=== PATIENT | male | born 1945 ===

== ENCOUNTER 2021-01-30 16:14 | Outpatient (CLI) | payer MEDICARE, BC ==
[2021-01-30 16:32] LABS: BASOPHILS % (AUTO) 0.3 %; EOSINOPHILS % (AUTO) 0.8 %; HGB - HEMOGLOBIN 12.3 g/dL (14.0-18.0); LYMPHOCYTES # (AUTO) 1.2 10^3/uL (1.5-3.5); LYMPHOCYTES % (AUTO) 31.1 %; MEAN CORPUSCULAR HEMOGLOBIN 33.2 pg (27.0-31.0); MEAN CORPUSCULAR HGB CONC 34.2 g/dL (32.0-36.0); MONOCYTES # (AUTO) 0.4 10^3/uL (0.0-1.0); NEUTROPHILS # (AUTO) 2.3 10^3/uL (1.5-6.6); NEUTROPHILS % (AUTO) 57.8 %; PLT - PLATELET COUNT 142 10^3/uL (130-450); RED BLOOD COUNT 3.71 10^6/uL (4.70-6.10); RED CELL DISTRIBUTION WIDTH 13.6 % (12.0-15.0); WHITE BLOOD COUNT 3.9 x10^3/uL (4.8-10.8)
== END 2021-01-30 16:15 | disposition home or self-care (01) ==
LOC: LAB 16:14
PROVIDERS: ATTEND Dermatology
DX: Z79.899 Other long term (current) drug therapy (principal)
CPT/HCPCS: 36415; 85025

== ENCOUNTER 2021-03-26 11:41 | Outpatient (CLI) | payer MEDICARE, BC ==
[2021-03-26 12:42] LABS: BASOPHILS % (AUTO) 0.5 %; EOSINOPHILS # (AUTO) 0.1 10^3/uL (0.0-0.7); EOSINOPHILS % (AUTO) 2.7 %; HCT - HEMATOCRIT 35.1 % (42.0-52.0); HGB - HEMOGLOBIN 12.1 g/dL (14.0-18.0); LYMPHOCYTES % (AUTO) 23.6 %; MEAN CORPUSCULAR HEMOGLOBIN 33.4 pg (27.0-31.0); MEAN CORPUSCULAR HGB CONC 34.5 g/dL (32.0-36.0); MEAN PLATELET VOLUME 8.2 fL (7.4-11.4); MONOCYTES # (AUTO) 0.4 10^3/uL (0.0-1.0); MONOCYTES % (AUTO) 9.1 %; NEUTROPHILS # (AUTO) 2.8 10^3/uL (1.5-6.6); NEUTROPHILS % (AUTO) 63.9 %; PLT - PLATELET COUNT 155 10^3/uL (130-450); RED BLOOD COUNT 3.62 10^6/uL (4.70-6.10); RED CELL DISTRIBUTION WIDTH 12.7 % (12.0-15.0); WHITE BLOOD COUNT 4.4 x10^3/uL (4.8-10.8)
[2021-03-26 12:53] LABS: ALBUMIN 4.1 g/dL (3.2-5.5); ALBUMIN/GLOBULIN RATIO 1.2 (1.0-2.2); BILIRUBIN,TOTAL 0.5 mg/dL (0.2-1.0); POTASSIUM 3.8 mmol/L (3.5-5.0); TOTAL PROTEIN 7.5 g/dL (6.7-8.2)
== END 2021-03-26 11:42 | disposition home or self-care (01) ==
LOC: LAB 11:41
PROVIDERS: ATTEND Dermatology
DX: Z79.899 Other long term (current) drug therapy (principal)
CPT/HCPCS: 36415; 80053; 85025

== ENCOUNTER 2021-04-08 16:02 | Outpatient (CLI) | payer MEDICARE, BC ==
--- NOTE | 2021-04-08 17:04 | XRAY Report ---
PROCEDURE: Hip w/Pelvis 2-3V LT INDICATIONS: PAIN IN LEFT HIP TECHNIQUE: AP pelvis with lateral view(s) of the bilateral hip(s). COMPARISON: None. FINDINGS: Bones: No fractures or dislocations. Pelvic ring appears intact. No suspicious bony lesions. Left hip arthroplasty is present with acetabular and femoral head prosthesis in expected position. No per iprosthetic fracture seen. There is [id number]-[id number] narrowing of the right hip joint. Degenerative d isc and facet disease involves the lower lumbar spine. Soft tissues: The visualized bowel gas pattern is normal. No suspicious soft tissue calcifications. IMPRESSION: Expected appearance and alignment of left hip arthroplasty. Mild/moderate right hip joint degeneration. Reviewed by: [place] Brown on 04/08/2021 5:03 PM PDT Approved by: Xavier Lazo MD on 04/08/2021 5:03 PM PDT Station ID: [id number]
== END 2021-04-08 16:03 | disposition home or self-care (01) ==
LOC: DI 16:02
PROVIDERS: ATTEND Family Medicine
DX: M25.552 Pain in left hip (principal); Z96.642 Presence of left artificial hip joint; M16.11 Unilateral primary osteoarthritis, right hip

== ENCOUNTER 2021-05-05 16:52 | Outpatient (CLI) | payer MEDICARE, BC ==
--- NOTE | 2021-05-07 06:07 | XRAY Report ---
PROCEDURE: Foot 3 View RT INDICATIONS: PAIN 1ST-2ND MP JOINTS R + OLD INJ L JONO TECHNIQUE: 3 views of the foot were acquired. COMPARISON: None. FINDINGS: Bones: No acute fractures or dislocations. No suspicious bony lesions. Severe degenerative changes are seen at the first metatarsophalangeal joint with complete joint space narrowing and subchondral sclerosis and formation of small marginal osteophytes. A tiny plantar calcaneal spur is present. Ther e is minimal dorsal spurring at the talonavicular joint. Soft tissues: No suspicious soft tissue calcification. IMPRESSION: No acute osseous abnormality. 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 Reviewed by: Deepak Hernández MD on 05/06/2021 9:49 AM PDT Approved by: Deepak Hernández MD on 05/06/2021 9:49 AM PDT Station ID: [id number]
--- NOTE | 2021-05-07 06:07 | XRAY Report ---
PROCEDURE: Tib/Fib LT INDICATIONS: PAIN 1ST-2ND MP JOINTS R + OLD INJ L JONO TECHNIQUE: 2 views of the tibia and fibula were acquired. COMPARISON: None. FINDINGS: Bones: No acute fractures or dislocations. No suspicious bony lesions. Small posterior and plantar calcaneal enthesophytes. Soft tissues: A calcification is partially imaged medial to the medial femoral condyle that may repre sent a Henry-Stieda lesion. The Achilles tendon stripe is mildly thickened, compatible with the reported history of a prior injury. IMPRESSION: 1. Thickening of the Achilles tendon shadow is consistent with a remote prior injury or tendinosis. A small insertional enthesophyte is present. 2. No acute osseous abnormality. 3. Small calcification is partially imaged adjacent to the medial femoral condyle, possibly represen ting a Henry-Stieda lesion or less likely an intra-articular loose body. Reviewed by: Deepak Hernández MD on 05/06/2021 10:02 AM PDT Approved by: Deepak Hernández MD on 05/06/2021 10:02 AM PDT Station ID: [id number]
== END 2021-05-05 16:53 | disposition home or self-care (01) ==
LOC: LAB 16:52
PROVIDERS: ATTEND Podiatrist
DX: M67.88 Other specified disorders of synovium and tendon, other site (principal); M77.32 Calcaneal spur, left foot; R93.6 Abnormal findings on diagnostic imaging of limbs; M19.071 Primary osteoarthritis, right ankle and foot

== ENCOUNTER 2021-07-03 11:30 | Outpatient (CLI) | payer MEDICARE, BC ==
[2021-07-03 11:50] LABS: BASOPHILS % (AUTO) 0.3 %; EOSINOPHILS # (AUTO) 0.1 10^3/uL (0.0-0.7); EOSINOPHILS % (AUTO) 2.6 %; HGB - HEMOGLOBIN 12.3 g/dL (14.0-18.0); LYMPHOCYTES % (AUTO) 32.9 %; MEAN CORPUSCULAR HEMOGLOBIN 32.5 pg (27.0-31.0); MEAN CORPUSCULAR HGB CONC 34.2 g/dL (32.0-36.0); MEAN PLATELET VOLUME 8.4 fL (7.4-11.4); MONOCYTES # (AUTO) 0.5 10^3/uL (0.0-1.0); MONOCYTES % (AUTO) 14.8 %; NEUTROPHILS # (AUTO) 1.5 10^3/uL (1.5-6.6); NEUTROPHILS % (AUTO) 49.4 %; PLT - PLATELET COUNT 157 10^3/uL (130-450); RED BLOOD COUNT 3.79 10^6/uL (4.70-6.10); RED CELL DISTRIBUTION WIDTH 12.2 % (12.0-15.0)
[2021-07-03 12:04] LABS: ALBUMIN 4.3 g/dL (3.2-5.5); BILIRUBIN,TOTAL 0.9 mg/dL (0.2-1.0); CALCIUM 8.8 mg/dL (8.5-10.3); CREATININE 1.1 mg/dL (0.6-1.2); POTASSIUM 3.7 mmol/L (3.5-5.0); TOTAL PROTEIN 8.7 g/dL (6.7-8.2)
== END 2021-07-03 11:31 | disposition home or self-care (01) ==
LOC: LAB 11:30
PROVIDERS: ATTEND Dermatology
DX: Z79.899 Other long term (current) drug therapy (principal)
CPT/HCPCS: 36415; 80053; 85025

== ENCOUNTER 2021-09-15 10:20 | Outpatient (CLI) | payer MEDICARE, BC ==
[2021-09-15 10:43] LABS: BASOPHILS % (AUTO) 0.2 %; EOSINOPHILS # (AUTO) 0.2 10^3/uL (0.0-0.7); EOSINOPHILS % (AUTO) 3.4 %; HCT - HEMATOCRIT 37.1 % (42.0-52.0); LYMPHOCYTES # (AUTO) 1.5 10^3/uL (1.5-3.5); LYMPHOCYTES % (AUTO) 33.4 %; MEAN CORPUSCULAR HEMOGLOBIN 32.4 pg (27.0-31.0); MEAN CORPUSCULAR VOLUME 92.5 fL (80.0-94.0); MEAN PLATELET VOLUME 8.5 fL (7.4-11.4); MONOCYTES # (AUTO) 0.5 10^3/uL (0.0-1.0); MONOCYTES % (AUTO) 11.6 %; NEUTROPHILS # (AUTO) 2.3 10^3/uL (1.5-6.6); NEUTROPHILS % (AUTO) 51.2 %; PLT - PLATELET COUNT 152 10^3/uL (130-450); RED BLOOD COUNT 4.01 10^6/uL (4.70-6.10); RED CELL DISTRIBUTION WIDTH 12.1 % (12.0-15.0); WHITE BLOOD COUNT 4.4 x10^3/uL (4.8-10.8)
== END 2021-09-15 10:21 | disposition home or self-care (01) ==
LOC: LAB 10:20
PROVIDERS: ATTEND Dermatology
DX: Z79.899 Other long term (current) drug therapy (principal)
CPT/HCPCS: 36415; 85025

== ENCOUNTER 2021-10-08 15:09 | Outpatient (CLI) | payer MEDICARE, BC ==
[2021-10-08 15:31] LABS: BASOPHILS % (AUTO) 0.3 %; EOSINOPHILS # (AUTO) 0.2 10^3/uL (0.0-0.7); EOSINOPHILS % (AUTO) 2.6 %; HCT - HEMATOCRIT 36.6 % (42.0-52.0); HGB - HEMOGLOBIN 12.8 g/dL (14.0-18.0); LYMPHOCYTES % (AUTO) 31.8 %; MEAN CORPUSCULAR HEMOGLOBIN 32.7 pg (27.0-31.0); MEAN CORPUSCULAR VOLUME 93.4 fL (80.0-94.0); MEAN PLATELET VOLUME 8.5 fL (7.4-11.4); MONOCYTES # (AUTO) 0.5 10^3/uL (0.0-1.0); MONOCYTES % (AUTO) 8.2 %; NEUTROPHILS # (AUTO) 3.5 10^3/uL (1.5-6.6); NEUTROPHILS % (AUTO) 56.6 %; PLT - PLATELET COUNT 180 10^3/uL (130-450); RED BLOOD COUNT 3.92 10^6/uL (4.70-6.10); RED CELL DISTRIBUTION WIDTH 12.5 % (12.0-15.0); WHITE BLOOD COUNT 6.1 x10^3/uL (4.8-10.8)
[2021-10-08 15:39] LABS: ALBUMIN 4.5 g/dL (3.2-5.5); ALBUMIN/GLOBULIN RATIO 1.4 (1.0-2.2); BILIRUBIN,TOTAL 0.7 mg/dL (0.2-1.0); CALCIUM 9.2 mg/dL (8.5-10.3); CREATININE 1.1 mg/dL (0.6-1.2); POTASSIUM 3.5 mmol/L (3.5-5.0); TOTAL PROTEIN 7.7 g/dL (6.7-8.2)
== END 2021-10-08 15:10 | disposition home or self-care (01) ==
LOC: LAB 15:09
PROVIDERS: ATTEND Dermatology
DX: Z79.899 Other long term (current) drug therapy (principal)
CPT/HCPCS: 36415; 80053; 85025

== ENCOUNTER 2021-12-18 11:28 | Outpatient (CLI) | payer MEDICARE, BC ==
[2021-12-18 11:51] LABS: BASOPHILS % (AUTO) 0.7 %; EOSINOPHILS # (AUTO) 0.1 10^3/uL (0.0-0.7); EOSINOPHILS % (AUTO) 2.6 %; HCT - HEMATOCRIT 36.4 % (42.0-52.0); HGB - HEMOGLOBIN 12.5 g/dL (14.0-18.0); LYMPHOCYTES % (AUTO) 33.1 %; MEAN CORPUSCULAR HEMOGLOBIN 32.7 pg (27.0-31.0); MEAN CORPUSCULAR HGB CONC 34.3 g/dL (32.0-36.0); MEAN CORPUSCULAR VOLUME 95.3 fL (80.0-94.0); MEAN PLATELET VOLUME 8.3 fL (7.4-11.4); MONOCYTES # (AUTO) 0.6 10^3/uL (0.0-1.0); MONOCYTES % (AUTO) 19.5 %; NEUTROPHILS # (AUTO) 1.3 10^3/uL (1.5-6.6); NEUTROPHILS % (AUTO) 44.1 %; PLT - PLATELET COUNT 140 10^3/uL (130-450); RED BLOOD COUNT 3.82 10^6/uL (4.70-6.10); RED CELL DISTRIBUTION WIDTH 13.5 % (12.0-15.0)
[2021-12-18 12:03] LABS: ALBUMIN 3.9 g/dL (3.2-5.5); ALBUMIN/GLOBULIN RATIO 0.6 (1.0-2.2); BILIRUBIN,TOTAL 0.7 mg/dL (0.2-1.0); CREATININE 1.1 mg/dL (0.6-1.2); POTASSIUM 3.7 mmol/L (3.5-5.0); TOTAL PROTEIN 10.2 g/dL (6.7-8.2)
== END 2021-12-18 11:29 | disposition home or self-care (01) ==
LOC: LAB 11:28
PROVIDERS: ATTEND Podiatrist
DX: B35.1 Tinea unguium (principal); Z79.899 Other long term (current) drug therapy
CPT/HCPCS: 36415; 80053; 82248; 85025

== ENCOUNTER 2022-01-06 11:24 | Emergency (ER) | payer MEDICARE, BC ==
[2022-01-06 11:39] VITALS: BP 132/77
--- NOTE | 2022-01-06 12:55 | ED Physician Documentation ---
PD HPI LOWER EXT INJURY - Stated complaint Stated Complaint: LEG PX/BULDGE - Chief complaint Chief Complaint: Ext Problem - History obtained from History obtained from: Patient - History of Present Illness PD HPI LOW EXT INJURY LOCATION: Left (Painful spot to the left medial knee for the last 3 days ago. He thinks he might of banged it on something but is specifically worried about DVT.) Review of Systems Constitutional: reports: Reviewed and negative Eyes: reports: Reviewed and negative Ears: reports: Reviewed and negative Nose: reports: Reviewed and negative Throat: reports: Reviewed and negative Cardiac: reports: Reviewed and negative PD PAST MEDICAL HISTORY - Present Medications Home Medications: Ambulatory Orders Medication Instructions Recorded Confirmed Alfuzosin HCl [Alfuzosin HCl ER] 10 mg PO DAILY 10/14/21 10/14/21 Calcium Carbonate [Calcium] 500 mg PO DAILY 10/14/21 10/14/21 Cholecalciferol (Vitamin D3) 100 mcg PO DAILY 10/14/21 10/14/21 [Vitamin D3] Desvenlafaxine Succinate [Pristiq 25 mg PO DAILY 10/14/21 10/14/21 ER] Lysine [l-Lysine] 1,000 mg PO DAILY 10/14/21 10/14/21 Montelukast Sodium 10 mg PO DAILY 10/14/21 10/14/21 Niacinamide 200 mg PO DAILY 10/14/21 10/14/21 Quetiapine Fumarate [Seroquel] 50 mg PO HS 10/14/21 10/14/21 Valacyclovir HCl [Valtrex] 500 mg PO PRN PRN 10/14/21 10/14/21 Vitamin B Complex 1 each PO DAILY 10/14/21 10/14/21 - Allergies Allergies/Adverse Reactions: Allergies Allergy/AdvReac Type Severity Reaction Status Date / Time No Known Drug Allergies Allergy Verified 01/06/22 11:38 PD ED PE NORMAL - Vitals Vital signs reviewed: Yes - General General: Alert and oriented X 3, No acute distress - Extremities Extremities: Other (There is a small tender area to the left medial knee with a suggestion of a subcutaneous fluid collection and mild surrounding bruising with full range of motion and no bony tenderness.) - Neuro Neuro: Alert and oriented X 3, Normal speech Results - Vitals Vitals: Vital Signs - 24 hr 01/06/22 11:38 Temperature 36.4 C L Heart Rate 65 Respiratory 18 Rate Blood Pressure 132/77 H O2 Saturation 100 Oxygen O2 Source Room air - Rads (name of study) DVT ultrasound without DVT but 1.6 cm hematoma in the symptomatic area. Radiology: EMP read contemporaneously Departure - Departure Disposition: 01 Home, Self Care Clinical Impression: Subcutaneous hematoma Condition: Good Record reviewed to determine appropriate education?: Yes Instructions: ED Hematoma Comments: Tylenol for pain, if it is particularly bad you can add ibuprofen or Aleve. Return for new or worsening symptoms. Should go away on its own. Follow-up with your doctor in a week if not better. Discharge Date/Time: 01/06/22 13:00
--- NOTE | 2022-01-06 13:06 | Ultrasound Report ---
PROCEDURE: Duplex Ext Veins Left INDICATIONS: leg pain and swelling TECHNIQUE: Real-time imaging, as well as color and pulse Doppler interrogation, were performed of the lower extr emity deep veins from the inguinal ligament to the popliteal fossa. COMPARISON: None. FINDINGS: The deep veins are normally compressible, and free of intraluminal thrombus. Color and pu lse Doppler demonstrate normal phasic intraluminal flow. There is normal augmentation response to di stal compression maneuver. There is an anteromedial left knee fluid collection in the subcutaneous soft tissues measuring 1.6 x 0.4 x 1.1 cm which is suspected to represent a small hematoma. IMPRESSION: Negative for deep venous thrombosis of the left lower extremity Probable 1.6 cm hematoma noted in the subcutaneous soft tissues of the anteromedial left knee. Reviewed by: Raza Houston MD on 01/06/2022 1:05 PM PDT Approved by: Raza Houston MD on 01/06/2022 1:05 PM PDT Station ID: [id number]
== END 2022-01-06 13:00 | disposition home or self-care (01) ==
LOC: ED 11:24
DX: S80.02XA Contusion of left knee, initial encounter (principal); X58.XXXA Exposure to other specified factors, initial encounter
CPT/HCPCS: 99282; 99284

== ENCOUNTER 2022-04-27 14:46 | Outpatient (CLI) | payer MEDICARE, BC ==
[2022-04-27 15:05] LABS: BASOPHILS % (AUTO) 0.3 %; EOSINOPHILS # (AUTO) 0.2 10^3/uL (0.0-0.7); EOSINOPHILS % (AUTO) 4.7 %; HCT - HEMATOCRIT 36.9 % (42.0-52.0); HGB - HEMOGLOBIN 12.8 g/dL (14.0-18.0); LYMPHOCYTES # (AUTO) 1.4 10^3/uL (1.5-3.5); LYMPHOCYTES % (AUTO) 43.8 %; MEAN CORPUSCULAR HEMOGLOBIN 32.6 pg (27.0-31.0); MEAN CORPUSCULAR HGB CONC 34.7 g/dL (32.0-36.0); MEAN CORPUSCULAR VOLUME 93.9 fL (80.0-94.0); MEAN PLATELET VOLUME 8.5 fL (7.4-11.4); MONOCYTES # (AUTO) 0.4 10^3/uL (0.0-1.0); MONOCYTES % (AUTO) 11.3 %; NEUTROPHILS # (AUTO) 1.3 10^3/uL (1.5-6.6); NEUTROPHILS % (AUTO) 39.6 %; PLT - PLATELET COUNT 153 10^3/uL (130-450); RED BLOOD COUNT 3.93 10^6/uL (4.70-6.10); RED CELL DISTRIBUTION WIDTH 12.6 % (12.0-15.0); WHITE BLOOD COUNT 3.2 x10^3/uL (4.8-10.8)
[2022-04-27 15:18] LABS: ALBUMIN 4.2 g/dL (3.2-5.5); ALBUMIN/GLOBULIN RATIO 1.1 (1.0-2.2); BILIRUBIN,TOTAL 0.5 mg/dL (0.2-1.0); CALCIUM 9.3 mg/dL (8.5-10.3); CREATININE 1.1 mg/dL (0.6-1.2); POTASSIUM 3.6 mmol/L (3.5-5.0); TOTAL PROTEIN 8.2 g/dL (6.7-8.2)
== END 2022-04-27 14:47 | disposition home or self-care (01) ==
LOC: LAB 14:46
PROVIDERS: ATTEND Dermatology
DX: Z79.899 Other long term (current) drug therapy (principal)
CPT/HCPCS: 36415; 80053; 85025

== ENCOUNTER 2022-08-16 10:02 | Emergency (ER) | payer MEDICARE, BC ==
--- NOTE | 2022-08-16 12:16 | ED Physician Documentation ---
PD HPI LOWER EXT INJURY - Stated complaint Stated Complaint: LFT LEG PX - Chief complaint Chief Complaint: Ext Problem - History obtained from History obtained from: Patient - History of Present Illness PD HPI LOW EXT INJURY LOCATION: Left, Hip, Thigh Type of injury: No: Fall, Twist Where injury occurred: Home (The patient has noted several weeks of pain seemingly from the low back into the left hip and around to the inner thigh. Worse with movement and walking. He has tried chiropractic as well as physical therapy directed by his primary care. Ibuprofen and naproxen without improvement.) Review of Systems : denies: Incontinent Musculoskeletal: reports: Back pain (some chronically). denies: Neck pain Neurologic: denies: Focal weakness, Numbness PD PAST MEDICAL HISTORY - Past Medical History Cardiovascular: None Endocrine/Autoimmune: None Psych: Depression Musculoskeletal: Osteoarthritis - Present Medications Home Medications: Ambulatory Orders Medication Instructions Recorded Confirmed Alfuzosin HCl [Alfuzosin HCl ER] 10 mg PO DAILY 10/14/21 10/14/21 Calcium Carbonate [Calcium] 500 mg PO DAILY 10/14/21 10/14/21 Cholecalciferol (Vitamin D3) 100 mcg PO DAILY 10/14/21 10/14/21 [Vitamin D3] Desvenlafaxine Succinate [Pristiq 25 mg PO DAILY 10/14/21 10/14/21 ER] Lysine [l-Lysine] 1,000 mg PO DAILY 10/14/21 10/14/21 Montelukast Sodium 10 mg PO DAILY 10/14/21 10/14/21 Niacinamide 200 mg PO DAILY 10/14/21 10/14/21 Quetiapine Fumarate [Seroquel] 50 mg PO HS 10/14/21 10/14/21 Valacyclovir HCl [Valtrex] 500 mg PO PRN PRN 10/14/21 10/14/21 Vitamin B Complex 1 each PO DAILY 10/14/21 10/14/21 Gabapentin [Neurontin] 100 mg PO TID 10 Days #30 cap 08/16/22 HYDROcod/ACETAM 5/325 [[place] 5/325] 1 ea PO Q6H PRN #25 tablet 08/16/22 HYDROcod/ACETAM 5/325 [[place] 5/325] 1 ea PO Q6H PRN #25 tablet 08/16/22 dexAMETHasone [Decadron] 4 mg PO DAILY #5 tablet 08/16/22 tiZANidine [Zanaflex] 4 mg PO Q8H PRN #25 tablet 08/16/22 - Allergies Allergies/Adverse Reactions: Allergies Allergy/AdvReac Type Severity Reaction Status Date / Time walnut Allergy Emesis Verified 08/16/22 10:17 PD ED PE NORMAL - Vitals Vital signs reviewed: Yes - General General: Alert and oriented X 3, No acute distress, Well developed/nourished - Cardiac Cardiac: RRR, No murmur - Respiratory Respiratory: No respiratory distress, Clear bilaterally - Abdomen Abdomen: Soft, Non tender - Male Male : Deferred - Rectal Rectal: Deferred - Back Back: No CVA TTP, Other (The patient has some tenderness in the lower back and left iliac crest. Some in the SI joint. Normal sensation and motor exam in the lower extremities.) Results - Vitals Vitals: Vital Signs - 24 hr 08/16/22 08/16/22 10:09 15:27 Temperature 36.0 C L 36.5 C Heart Rate 73 70 Respiratory 16 16 Rate Blood Pressure 129/78 124/72 O2 Saturation 100 100 Oxygen O2 Source Room air - Rads (name of study) lumbar/pelvic CT Radiology: Prelim report reviewed (Arthritic changes through the low back with significant disc disease most notable at L3-4. The pelvic CT showed no abnormalities around the prior left hip prosthesis. Arthritic changes noted.), See rad report PD Medical Decision Making - ED course Complexity details: reviewed results, considered differential, d/w patient ED course: The patient is having pain in the low back with radiation to the hip and thigh consistent with a possible radicular pattern of L3. He also has some exam tenderness in the SI joint and pain with walking and standing so consideration of sacroiliitis as well. He is not diabetic and so therefore feel we can do a short course steroid treatment without any complications. He is moving to [place] and having to do some lifting and packing. He will be driving there over 2 to 3 days starting for 5 days from now. He was cautioned about use of medication while driving and to stick with nonsedating medication and using opiate type pain medicine at night. He was given a disc of his imaging as he is moving in therefore would not really benefit from a local follow-up. CT scans were done to look for more significant causes and in particular any problems related to his prior prosthesis. This showed significant canal and outlet narrowing at the L3-4 level which would correspond with his distribution of pain in a radicular pattern. I sent prescriptions for him to the pharmacy of his choosing. Departure - Departure Disposition: 01 Home, Self Care Clinical Impression: Left hip pain, Degenerative disc disease, lumbar, Radiculitis Condition: Stable Record reviewed to determine appropriate education?: Yes Instructions: ED Sciatica Prescriptions: dexAMETHasone [Decadron] 4 mg PO DAILY #5 tablet Gabapentin [Neurontin] 100 mg PO TID 10 Days #30 cap HYDROcod/ACETAM 5/325 [[place] 5/325] 1 ea PO Q6H PRN #25 tablet PRN Reason: Pain tiZANidine [Zanaflex] 4 mg PO Q8H PRN #25 tablet PRN Reason: Spasms Comments: Your CT scan showed your hip prosthesis to be in place without any damage or such around it. You do have degenerative disc disease and all levels of the lumbar spine. It is particularly prominent at the L3-4 level and nerve irritation at that level would correlate with the distribution of your pain to the hip and thigh. We can treat this with continuing your physical therapy and chiropractic while you are still in town. Follow-up with a new primary care when you moved to [place] later this week. You can use range of motion and stretching exercises for the left hip and lower back. Also look up stretching exercises related to "sacroiliac strain" at this may work better than typical low back stretches. Meanwhile we will treat it with a combination of Decadron steroid anti- inflammatory for 5 days as well as tizanidine muscle relaxant and we could do a low-dose gabapentin 2-3 times daily. To that add Tylenol 4 times daily for the pain particularly when you are driving etc. Add hydrocodone/acetaminophen every 6 hours if needed for worse pain but be aware it will be sedating and would not be safe to drive with that. The duration of the medication is 6 to 8 hours so you could take it at night and be okay for the next day. I sent your prescriptions to [facility] in [place]. We provided you a disc of your images so you can more easily have them for follow-up. My narcotic instructions I am prescribing a short course of narcotic pain medication for you. These are potentially dangerous and addictive medications that should be used carefully. These medications may constipate you. Take an [id number] stool softener such as docusate twice daily with plenty of water while taking these medications. If you go 24 hours without a bowel movement, take [id number] MiraLAX, per package instructions. Do not drink or drive while taking these medications. If you received narcotic or sedating medications while in the emergency department do not drive for 24 hours. Store this medication in a safe, secure place and out of reach of children. It is a violation of federal law to give or sell this medication to another person or to use in a manner other than prescribed. The ED will not refill narcotic prescriptions, including prescriptions lost or stolen. You can dispose of unwanted medications at the [facility] Home [facility] office or at several pharmacies such as [facility]. Discharge Date/Time: 08/16/22 15:27
[2022-08-16] MEDS ORDERED: DEXAMETHASONE 10 MG/ML VIAL PO STA (12:58)
[2022-08-16] MEDS ORDERED: methocarbamoL 500 MG TABLET PO STA (12:58)
[2022-08-16] MEDS ORDERED: ACETAMINOPHEN 325 MG TABLET PO STA (12:58)
[2022-08-16] MEDS ORDERED: CHERRY SYRUP 10 ML UDC PO ONE (12:58)
--- NOTE | 2022-08-16 13:53 | CT Report ---
PROCEDURE: CT lumbar spine without contrastd INDICATIONS: left lower back/pelvic pain TECHNIQUE: Noncontrast 3 mm thick sections acquired from the T12 level to the sacrum. Sagittal and coronal refo rmats were constructed. For radiation dose reduction, the following was used: automated exposure co ntrol, adjustment of mA and/or kV according to patient size. COMPARISON: None. FINDINGS: Image quality: Excellent. Bones: There is normal bony alignment. No acute vertebral body compression fractures. No suspiciou s lytic or blastic bony lesions. Central spinal caliber is of normal overall caliber. No pars defec ts. Grade 1 degenerative anterior spinal listhesis at L3-4. T12-L1: Normal in appearance. L1-L2: Normal in appearance. L2-L3: Disc space narrowing and hypertrophic facet joints. Mild circumferential disc bulge. Mild c entral stenosis and mild bilateral foraminal stenosis L3-L4: Disc space narrowing with endplate sclerosis and anterior osteophytes are present. Circumfer ential disc bulge, hypertrophic facet joints and ligamentum flavum laxity all combine to result in se isabel central stenosis. Moderate bilateral foraminal stenosis L4-L5: Disc spaces preserved. Cervical disc bulge and hypertrophic facet joints and ligamentum flav um laxity combines to result in moderate to severe central stenosis. Moderate bilateral foraminal gerard nosis L5-S1: Disc spaces preserved. Hypertrophic facet joints. Mild central stenosis. Moderate bilateral foraminal stenosis Soft tissues: No retroperitoneal masses or hematomas. Visualized aorta is normal in caliber. IMPRESSION: 1. Multilevel degenerative disc disease and arthropathy results in varying degrees of central and for aminal stenosis including severe central stenosis at L3-4 and moderate to severe central stenosis at L4-5 Reviewed by: Vance Dawn MD on 08/16/2022 12:51 PM [place] Approved by: Vance Dawn MD on 08/16/2022 12:51 PM AKST Station ID: [id number]
--- NOTE | 2022-08-16 14:02 | CT Report ---
PROCEDURE: CT pelvis without contrast INDICATIONS: left lower back/pelvic pain TECHNIQUE: Noncontrast 3 mm axial sections acquired through the bony pelvis, with coronal and sagittal reformatt ing. For radiation dose reduction, the following was used: automated exposure control, adjustment of mA and/or kV according to patient size. COMPARISON: None. FINDINGS: Image quality: Excellent. Bones: Normal bone mineralization. Bilateral sacroiliac joint sclerosis with marginal osteophyte not ed on the left. Degenerative changes noted lower lumbar spine. Total left hip prosthesis in place wit hout evidence of fracture. No hardware failure or loosening. Right hip joint space narrowing and smal l marginal osteophyte present. No evidence of fracture. Pelvic ring intact Soft tissues: Small right inguinal hernia fat without bowel involvement IMPRESSION: 1. Total left hip prosthesis in place without evidence of fracture or hardware loosening. 2. Lower lumbar spine and right hip degenerative changes Reviewed by: Vance Dawn MD on 08/16/2022 1:01 PM AKST Approved by: Vance Dawn MD on 08/16/2022 1:01 PM AKST Station ID: [id number]
[2022-08-16 15:28] VITALS: BP 124/72
[2022-08-16] MEDS ORDERED: HYDROcod/ACET 5/325 Prepack 4 PO STA (17:00)
== END 2022-08-16 15:27 | disposition home or self-care (01) ==
LOC: ED 10:02
DX: M51.36 Other intervertebral disc degeneration, lumbar region (principal); M51.16 Intervertebral disc disorders with radiculopathy, lumbar region; M25.552 Pain in left hip
CPT/HCPCS: 72131; 72192; 99283; 99284; A9270